=== PATIENT | female | born 1950 | race Two or more races ===

== ENCOUNTER 2018-08-15 01:46 | Inpatient (IN) | payer MEDICARE, OTHER ==
[~2018-08-15] VITALS: Ht 149.9 cm; Wt 29.9 kg
--- NOTE | 2018-08-15 02:30 | NUR ---
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 PT [id number]. PT HYPERVENTILATING. PT PUT ON THE MANAGER GYN AND PULSE OX. PT SATURATING 99% ON ROOM AIR. PENDING EVAL FROM JANE WHITE.
[2018-08-15] MEDS ORDERED: IV NS 0.9% 500 ML IV ONE (02:36)
--- NOTE | 2018-08-15 02:53 | NUR ---
XRAY AT BEDSIDE.
[2018-08-15] MEDS ORDERED: FAMOTIDINE/PF INJ 20 MG/2 ML VIAL IV ONE ×2 (03:00→03:15)
[2018-08-15] MEDS ORDERED: ALBUTEROL FS 2.5 MG/3 ML VIAL.NEB NEB ONE (03:00)
[2018-08-15] MEDS ORDERED: IPRATROPIUM NEB FS 0.5 MG/2.5 ML AMPUL.NEB NEB ONE (03:00)
[2018-08-15] MEDS ORDERED: ONDANSETRON HCL/PF - ER 4 MG/2 ML VIAL IV ONE (03:00)
[2018-08-15] MEDS ORDERED: ONDANSETRON HCL/PF 4 MG/2 ML VIAL ONE (03:13)
[2018-08-15] MEDS ORDERED: MORPHINE SULFATE INJ 2 MG/ML DISP.SYRIN ONE (03:14)
--- NOTE | 2018-08-15 03:20 | NUR ---
PT STATING THAT SHE DOES NOT WANT TO HAVE THE CT SCAN AT THIS MOMENT. ER MD AWARE.
[2018-08-15 03:22] LABS: BASOPHILS # (AUTO) 0.1 /CMM (0.0-0.2); BASOPHILS % (AUTO) 0.9 % (0.0-2.0); EOSINOPHILS % (AUTO) 0.3 % (0.0-6.0); HEMATOCRIT 35 % (33-45); LYMPHOCYTES # (AUTO) 1.1 /CMM (0.8-4.8); LYMPHOCYTES % (AUTO) 9.4 % (20.0-44.0); MEAN CORPUSCULAR HGB CONC 32 g/dl (31.0-36.0); MEAN CORPUSCULAR VOLUME 78 fL (82-100); MONOCYTES # (AUTO) 0.8 /CMM (0.1-1.30); MONOCYTES % (AUTO) 6.5 % (2.0-12.0); NEUTROPHILS # (AUTO) 9.7 /CMM (1.8-8.9); NEUTROPHILS % (AUTO) 82.9 % (43.0-81.0); PLATELET COUNT (AUTO) 359 /CMM (150-450); RED BLOOD CELL COUNT(AUTO) 4.49 MIL/uL (4.0-5.2); WHITE BLOOD COUNT (AUTO) 11.7 K/uL (4.3-11.0)
[2018-08-15] MEDS ORDERED: MORPHINE SULFATE INJ 2 MG/ML DISP.SYRIN IV ONE (03:30)
[2018-08-15 03:33] LABS: CALCIUM, SERUM 9.1 mg/dL (8.5-10.1); CARBON DIOXIDE 18 mmol/L (21-32); CHLORIDE 109 mmol/L (98-107); CREATININE 1.2 mg/dL (0.6-1.3); GLUCOSE 129 mg/dL (74-106); POTASSIUM 3.2 mmol/L (3.5-5.1); SODIUM SERUM 144 mmol/L (136-145); UREA NITROGEN, BLOOD 29 mg/dL (7-18)
--- NOTE | 2018-08-15 03:34 | NUR ---
pt refused ekg made aware
[2018-08-15 03:45] LABS: ALANINE AMINOTRANSFERASE 19 U/L (12-78); ALKALINE PHOSPHATASE 56 U/L (46-116); ASPARTATE AMINOTRANSFERASE 14 U/L (15-37); B-TYPE NATRIURETIC PEPTIDE 223 PG/ML (0-125); BILIRUBIN,DIRECT 0.1 mg/dL (0.0-0.2); BILIRUBIN,TOTAL 0.4 mg/dL (0.2-1.0)
--- NOTE | 2018-08-15 05:09 | NUR ---
PT TAKEN TO CT, NOT TOLERATING LAYING FLAT. CT NOT TAKEN. ER NOTIFIED.
[2018-08-15] MEDS ORDERED: HYDROMORPHONE 1 MG/1 ML DISP.SYRIN ONE (05:11)
[2018-08-15] MEDS ORDERED: HYDROMORPHONE 1 MG/1 ML DISP.SYRIN IV ONE (05:30)
--- NOTE | 2018-08-15 06:20 | NUR ---
DR. DEL CID HAS BEEN PAGED
--- NOTE | 2018-08-15 06:53 | NUR ---
REPORT GIVEN TO HILLARY CROWDER FOR TERRELL.
[2018-08-15 07:21] LABS: APPEARANCE,URINE CLEAR (CLEAR); BILIRUBIN,URINE NEGATIVE (NEGATIVE); BLOOD, URINE TRACE Ery/uL (NEGATIVE); COLOR,URINE YELLOW (YELLOW); KETONES,URINE TRACE (NEGATIVE); LEUKOCYTE ESTERASE ,URINE NEGATIVE (NEGATIVE); NITRITE, URINE NEGATIVE (NEGATIVE); PH,URINE 5.5 (5.0-8.0); PROTEIN,URINE NEGATIVE (NEGATIVE); UGLUCOSE NEGATIVE (NEGATIVE); UROBILINOGEN,URINE 0.2 EU/dL (0.2)
[2018-08-15 07:27] LABS: BACTERIA,URINE Few /HPF (None Seen); RBC,URINE 0-2 /HPF (0-2); WBC,URINE 0-2 /HPF (0-3)
[2018-08-15 07:28] LABS: MUCUS,URINE Rare /LPF (None Seen); SQUAMOUS EPITHELIAL CELL,UR Rare /HPF (None Seen)
--- NOTE | 2018-08-15 07:56 | NUR ---
REPORT GIVEN TO RAHUL CORWDER FOR TERRELL.
[2018-08-15 09:05] VITALS: BP 148/91
--- NOTE | 2018-08-15 09:10 | NUR ---
tele day spa manager: admission admitted this 67 year old female pt from e.. with dx: intractable n/v, abdominal pain. pt very anxious and hyperventilating. place pt on tele [id number]. 1:1 intervention provided, encouraged to verbalized feelings. pt alert and oriented, however with poor concentration due to anxiety. oriented to room and surroundings. left message to kehinde (nick) thru exchange. pt made aware. kept pt npo. instructed to call for assistance. will continue to monitor.
--- NOTE | 2018-08-15 09:19 | NUR ---
wheeled patient via gurney accompanied by rn and emt in no apparenet distress noted.
--- NOTE | 2018-08-15 10:45 | NUR ---
tele mobile phlebotomist: md visit seen and examined by kehinde (acnp) with new orders. pt for gi consult: Reason for Consultation: <intractable n/v with hx of esophagitis and duodenal ulcer on EGD 05/30/2018 per md. pt made aware. pt may have ice chips only, pt still anxious, but refusing ativan at this time when offered. kept pt npo. instructed to call for assistance. will continue to monitor.
[2018-08-15] MEDS ORDERED: INSULIN REGULAR, HUMAN 100 UNIT/ML 3 ML VIAL SQ PRN (11:00)
[2018-08-15] MEDS ORDERED: MORPHINE SULFATE INJ 2 MG/ML DISP.SYRIN IV PRN (11:00)
[2018-08-15] MEDS ORDERED: MAG HYDROX/AL HYDROX/SIMETH 30 ML UDC PO PRN (11:00)
[2018-08-15] MEDS ORDERED: ACETAMINOPHEN 325 MG TABLET PO PRN ×2 (11:00→15:00)
[2018-08-15] MEDS ORDERED: IV D5/ 0.9% NACL 1,000 ML IV PRN (11:00)
[2018-08-15] MEDS ORDERED: LORAZEPAM INJ 2 MG/ML VIAL IV PRN (11:00)
[2018-08-15] MEDS ORDERED: DEXTROSE 50%-WATER 50 ML DISP.SYRIN IV PRN (11:00)
[2018-08-15] MEDS ORDERED: MAGNESIUM HYDROXIDE 30 ML UDC PO PRN (11:00)
[2018-08-15] MEDS ORDERED: Z GUARD REMEDY 2 OZ OINT TP PRN (11:00)
[2018-08-15] MEDS: POTASSIUM CL. PREMIX PERIPHER. 50 ML IV SCH ×5 (11:21→20:33)
[2018-08-15] MEDS ORDERED: AMYL1CAP58 PO (11:32)
[2018-08-15] MEDS ORDERED: DEXA4TAB PO (11:32)
[2018-08-15] MEDS ORDERED: PANT40TA4 PO (11:32)
[2018-08-15] MEDS ORDERED: GABA-534 PO (11:32)
[2018-08-15] MEDS ORDERED: LOPE2TAB25 PO (11:32)
[2018-08-15] MEDS: BLOOD SUGAR DIAGNOSTIC 1 EACH STRIP IN SCH ×3 (11:40→23:47)
[2018-08-15 12:00] VITALS: BP 162/84
--- NOTE | 2018-08-15 12:00 | NUR ---
tele head of stock: notes pt remains npo, ice chips provided. pt wants to eat. pt remain easily gets anxious. encouraged to verbalized feelings. will continue to monitor.
[2018-08-15] MEDS: PANTOPRAZOLE 40 MG VIAL IV SCH ×2 (12:18→18:12)
[2018-08-15] MEDS: ONDANSETRON HCL/PF 4 MG/2 ML VIAL IVP PRN (13:10)
[2018-08-15] MEDS: Magnesium 1GM/D5W 100ML PREMIX 100 ML IV SCH ×4 (14:22→18:12)
--- NOTE | 2018-08-15 14:50 | NUR ---
tele financial coordinator: gi consult seen and examined by dr. gu with new orders and also receive verbal order to start her on low fat diet, lactose free. order read back and carried out and acknowledged.
[2018-08-15] MEDS ORDERED: LOPERAMIDE HCL (2 MG CAP) 2 MG CAPSULE PO PRN (15:00)
[2018-08-15] MEDS ORDERED: CHOLESTYRAMINE/ASPARTAME 4 G/PKT PACKET PO ONE (15:30)
[2018-08-15] MEDS: LACTOBACILLUS RHAMNOSUS GG 1 EACH CAP.SPRINK PO SCH ×2 (15:35→17:04)
--- NOTE | 2018-08-15 15:38 | NUR ---
m/s child and adolescent therapist: notes september d'c ivf of d5ns and accu check with sliding scale after potassium is replaced per kehinde (acnp) per telephone order. orders read back and carried out. pt still with anxiousness, but refused ativan when offered. will continue to monitor.
[2018-08-15 16:00] VITALS: BP 152/87
--- NOTE | 2018-08-15 16:45 | NUR ---
m/s landscaping and groundskeeping laborer: notes taken down for ct via w/c at this time accompanied by tech.
--- NOTE | 2018-08-15 16:55 | NUR ---
m/s ear nose and throat specialist: notes pt back from ct and safely transferred back to bed. kept comfortable. instructed to call for assistance. will monitor.
[2018-08-15] MEDS ORDERED: PANTOPRAZOLE 40 MG VIAL IV SCH (17:00)
[2018-08-15] MEDS: GABAPENTIN 300 MG CAPSULE PO SCH (17:04)
[2018-08-15] MEDS: MESALAMINE 400 MG CAP PO SCH (17:05)
--- NOTE | 2018-08-15 17:05 | NUR ---
m/s commutator presser: notes dinner served. hob elevated. call light within reach. will monitor.
[2018-08-15] MEDS: LIPASE/PROTEASE/AMYLASE 1 EACH CAPSULE.DR PO SCH (17:06)
--- NOTE | 2018-08-15 17:34 | NUR ---
tele cardiovascular physician assistant: notes ct abdomen resulted. dr. gu (gi) notified and made aware with no new order, continue current treatment per md. left message to kehinde (acnp) re: ct abdomen result. will continue to monitor.
--- NOTE | 2018-08-15 18:00 | NUR ---
tele casino accountant: notes kehinde (acnp) here and showed ct abdomen result with no new order.
--- NOTE | 2018-08-15 19:00 | NUR ---
tele tile sorter: notes bedside report given damian (rn) for continuity of care. pt resting quietly and watching tv. voiced no discomfort. call light within reach.
--- NOTE | 2018-08-15 19:05 | NUR ---
MANUFACTURING JOB TITLES OPENING NOTES Received patient A/O x4, awake on semi-Callejas's position on bed with patent peripheral IV line LFA G#20 with D5NS infusing well @ 75ml/hr, with on going KCL 10mEq infusing well @ 100ml/hr as ordered. Patient denies discomfort at this time but refused to be touched/assessed, patient claimed having pain when touched. Kept clean, dry and comfortable, call light at bedside. Will continue to monitor accordingly. Addendum: 08/15/18 at 0766 by EMMANUEL JOSE RN On tele monitor with SR noted.
[2018-08-15] MEDS ORDERED: POTASSIUM CHLORIDE 10 MEQ/50 ML PREMIXED IVPB FOR PERIPHERAL LINE IV ONE ×2 (19:30)
[2018-08-15 20:00] VITALS: BP 114/76
[2018-08-16] VITALS: BP 108/71
[2018-08-16] MEDS: MESALAMINE 400 MG CAP PO SCH ×3 (01:05→17:13)
[2018-08-16 04:00] VITALS: BP_SYST 108; BP_SYST 112; BP_DIAS 71; BP_DIAS 75
--- NOTE | 2018-08-16 06:23 | NUR ---
PROCESS PLANT OPERATOR CLOSING NOTES Patient on bed intermittently asleep. With peripheral IV line LFA G#22, SL as ordered. All nursing needs attended. Kept on bed clean, dry and comfortable. Kept bed low and locked, siderails x2 up with call light within easy reach. No BM noted within the shift, patient still for stool collection as ordered. No new unsualities noted. Endorsed to the next shift. Addendum: 08/16/18 at 0636 by EMMANUEL JOSE RN On tele monitor with sinus rhythm noted.
[2018-08-16 06:42] LABS: BASOPHILS % (AUTO) 0.5 % (0.0-2.0); EOSINOPHILS % (AUTO) 0.3 % (0.0-6.0); HEMATOCRIT 29 % (33-45); HEMOGLOBIN 9.6 g/dL (11.5-14.8); LYMPHOCYTES # (AUTO) 0.6 /CMM (0.8-4.8); LYMPHOCYTES % (AUTO) 6.5 % (20.0-44.0); MEAN CORPUSCULAR HGB CONC 33 g/dl (31.0-36.0); MEAN CORPUSCULAR VOLUME 76 fL (82-100); MONOCYTES # (AUTO) 0.8 /CMM (0.1-1.30); MONOCYTES % (AUTO) 8.6 % (2.0-12.0); NEUTROPHILS # (AUTO) 7.5 /CMM (1.8-8.9); NEUTROPHILS % (AUTO) 84.1 % (43.0-81.0); PLATELET COUNT (AUTO) 228 /CMM (150-450); RED BLOOD CELL COUNT(AUTO) 3.85 MIL/uL (4.0-5.2); WHITE BLOOD COUNT (AUTO) 8.9 K/uL (4.3-11.0)
[2018-08-16 06:54] LABS: CALCIUM, SERUM 7.9 mg/dL (8.5-10.1); CREATININE 0.8 mg/dL (0.6-1.3); MAGNESIUM 2.6 mg/dL (1.8-2.4); PHOSPHORUS 3.9 mg/dL (2.5-4.9); POTASSIUM 3.8 mmol/L (3.5-5.1)
[2018-08-16 06:57] LABS: THYROID STIMULATING HORMONE 1.048 uIU/mL (0.358-3.74)
[2018-08-16 08:00] VITALS: BP 123/92
--- NOTE | 2018-08-16 08:00 | NUR ---
RN OPENING NOTES Received Patient awake in bed. A/O x 4. VS stable. Patient complains of headache 5/10 with facial grimacing. Administered Tylenol 325mg PO PRN per Patients request at 0812. Telemonitor in place, SR with HR-99. Breathing even and unlabored on RA. IV access on LEFT FOREARM, clean, dry and intact. IV flushes well. All scheduled medications administered. Safety precautions in place. Call light within reach. Will continue to monitor.
[2018-08-16] MEDS: LIPASE/PROTEASE/AMYLASE 1 EACH CAPSULE.DR PO SCH ×3 (08:10→17:18)
[2018-08-16] MEDS: PANTOPRAZOLE 40 MG VIAL IV SCH ×2 (08:48→17:13)
[2018-08-16] MEDS: LACTOBACILLUS RHAMNOSUS GG 1 EACH CAP.SPRINK PO SCH ×2 (08:48→17:13)
[2018-08-16] MEDS: GABAPENTIN 300 MG CAPSULE PO SCH ×3 (08:49→17:13)
--- NOTE | 2018-08-16 09:00 | NUR ---
RN NOTES Per Set Up Inspector, D/C Patient from Tele, transfer to Med/Surg. Will continue to monitor.
[2018-08-16] MEDS: ASPIRIN/ACETAMINOPHEN/CAFFEINE 1 EACH TABLET PO PRN (13:10)
--- NOTE | 2018-08-16 13:10 | NUR ---
RN NOTES Administered Excedrin 2 tab PO PRN per Patients request. Patient stated migraine pain level of 8/10. Facial grimacing noted. Guarding noted. No acute distress. Will continue to monitor.
[2018-08-16] MEDS: ONDANSETRON HCL/PF 4 MG/2 ML VIAL IVP PRN (13:18)
--- NOTE | 2018-08-16 13:18 | NUR ---
RN NOTES Administered Zofran 8mg IV PUSH PRN per Patients request. Patient complains of nausea, no emesis noted. IV access, clean, dry and intact and flushes well. Will continue to monitor.
[2018-08-16] MEDS ORDERED: METOCLOPRAMIDE HCL 10 MG TABLET PO ONE ×2 (15:00→15:30)
--- NOTE | 2018-08-16 15:58 | NUR ---
RN NOTES Patient states nausea unrelieved at 1348. Notified Hai VALLE. At 1440, new order of Reglan 10mg PO x 1 time dose now. Will continue to monitor.
[2018-08-16 16:00] VITALS: BP 149/94
--- NOTE | 2018-08-16 18:53 | NUR ---
RN CLOSING NOTES Patient awake and comfortable in bed. A/O x 4. VS stable. Denies nausea and vomiting at this time. Patient stated tolerable pain level of 2/10 at bilateral fingers and bilateral knees. Breathing even and unlabored on room air. IV access on LEFT FOREARM, clean, dry and intact. IV flushes well. All scheduled medications administered. All needs rendered. Safety precautions in place. Call light within reach. Will endorse care of plan to oncoming nurse.
--- NOTE | 2018-08-16 19:15 | NUR ---
MS RN OPENING NOTES Received patient A/O x4, awake on bed on semi-Callejas's position, with snacks at bedside. Per patient, headache is very manageable at this time compared to earlier today. Encouraged patient to increase oral fluid intake as tolerated, water provided at bedside. Kept bed low and locked, with siderails up. Call light at bedside within easy reach. Will continue to monitor accordingly.
[2018-08-16 20:00] VITALS: BP_SYST 123; BP_DIAS 83; BP_DIAS 85
[2018-08-17] MEDS: MESALAMINE 400 MG CAP PO SCH ×3 (00:32→17:00)
--- NOTE | 2018-08-17 03:40 | NUR ---
MS RN NOTES Stool sample collected for stool culture and c-diff analysis. Notified labs for slate picker, spoke with
[2018-08-17] MEDS: ASPIRIN/ACETAMINOPHEN/CAFFEINE 1 EACH TABLET PO PRN (04:59)
--- NOTE | 2018-08-17 06:36 | NUR ---
MS RN CLOSING NOTES Patient noted intermittently asleep throughout the shift. BM X2 noted, loose. Medicated for pain, noted Exsadren effective. All nursing needs attended. Kept clean, dry and comfortable. Kept bed low and locked, side rails up x2, call light within easy reach. Endorsed to the next shift.
[2018-08-17 06:48] LABS: BASOPHILS # (AUTO) 0.1 /CMM (0.0-0.2); BASOPHILS % (AUTO) 0.6 % (0.0-2.0); EOSINOPHILS % (AUTO) 0.5 % (0.0-6.0); HEMATOCRIT 31 % (33-45); HEMOGLOBIN 10.3 g/dL (11.5-14.8); LYMPHOCYTES # (AUTO) 0.9 /CMM (0.8-4.8); LYMPHOCYTES % (AUTO) 9.9 % (20.0-44.0); MEAN CORPUSCULAR HGB CONC 33 g/dl (31.0-36.0); MEAN CORPUSCULAR VOLUME 77 fL (82-100); MONOCYTES # (AUTO) 0.8 /CMM (0.1-1.30); MONOCYTES % (AUTO) 8.3 % (2.0-12.0); NEUTROPHILS # (AUTO) 7.6 /CMM (1.8-8.9); NEUTROPHILS % (AUTO) 80.7 % (43.0-81.0); PLATELET COUNT (AUTO) 248 /CMM (150-450); RED BLOOD CELL COUNT(AUTO) 4.07 MIL/uL (4.0-5.2); WHITE BLOOD COUNT (AUTO) 9.4 K/uL (4.3-11.0)
[2018-08-17 07:00] LABS: CALCIUM, SERUM 8.5 mg/dL (8.5-10.1); MAGNESIUM 1.9 mg/dL (1.8-2.4); PHOSPHORUS 4.7 mg/dL (2.5-4.9)
--- NOTE | 2018-08-17 07:15 | NUR ---
MS RN Opening Notes Patient asleep, resting in bed. Semi-Fowlers position. Alert and oriented x4, able to make needs known. No complaints of shortness of breath, chest pain or pain at this time. Respirations even and unlabored on room air, no acute distress noted. Peripheral IV to the left forearm 22 gauge, intact, patent and saline locked. Updated patient on current plan of care and safety measures. Patient verbalized understanding. Safety and fall precautions in place: bed in lowest and locked position, side rails up x2, bed alarm on, call light and personal possessions within reach. Will continue to monitor and intervene as needed.
[2018-08-17 08:00] VITALS: BP 130/56
[2018-08-17] MEDS: GABAPENTIN 300 MG CAPSULE PO SCH ×3 (08:00→17:00)
[2018-08-17] MEDS: LIPASE/PROTEASE/AMYLASE 1 EACH CAPSULE.DR PO SCH ×3 (08:00→18:00)
[2018-08-17] MEDS: LACTOBACILLUS RHAMNOSUS GG 1 EACH CAP.SPRINK PO SCH ×2 (08:00→17:00)
[2018-08-17] MEDS: PANTOPRAZOLE 40 MG VIAL IV SCH ×2 (09:31→18:21)
[2018-08-17] MEDS: POTASSIUM CHLORIDE 20 MEQ TAB.PRT.SR PO SCH ×3 (13:14→13:33)
[2018-08-17] MEDS: POTASSIUM CHLORIDE 20 MEQ POWDER PACKET PO SCH ×2 (14:44→15:00)
[2018-08-17 16:00] VITALS: BP 140/70
[2018-08-17] MEDS: ONDANSETRON HCL/PF 4 MG/2 ML VIAL IVP PRN (16:17)
[2018-08-17] MEDS: PROSOURCE / PROSTAT (PYXIS) 30 ML UDC GT SCH (16:57)
--- NOTE | 2018-08-17 17:30 | NUR ---
MS social work associate Note Patient currently with nausea and 1x episode of emesis. Zofran given as ordered. Currently refusing all oral medications and dinner. 2x diarrhea this shift. Will page hospitalist for fluid orders. Currently resting in bed. Will continue to monitor.
[2018-08-17] MEDS ORDERED: METOCLOPRAMIDE HCL 10 MG/2 ML VIAL IV PRN (18:00)
--- NOTE | 2018-08-17 19:40 | NUR ---
MS SIA INITIAL NOTES RECEIVED REPORT FROM AM NURSE AND SEEN PT IN BED ON SEMI FOWLERS POSITION AWAKE AND ALERT RESTING AT THIS TIME. DENIES ANY PAIN OR ANY DISCOMFORT. DENIES ANY PAIN AND PER AM NURSE SHE JUST GAVE ZOFRAN FOR HER N/V .ENCOURAGE PT TO USED THE CALL LIGHT SYSTEM IF SHE NEEDS SOME HELP OR ASSISTANCE. PLACE CALL LIGHT AT REACH. WILL CONTINUE MONITORING.
[2018-08-17 20:00] VITALS: BP 148/93
[2018-08-17] MEDS: Potassium Chloride 20 MEQ in IV D5/ 0.9% NACL 1,000 ML IV PRN (20:39)
--- NOTE | 2018-08-18 | NUR ---
CAR BODY DESIGNER NOTES PT SLEEPING COMFORTABLY IN BED WITH IVF STILL INFUSING , BREATHING EVEN AND UNLABORED, NOT IN ANY ACUTE DISTRESS NOTED. KEPT HER WARM AND COMFORTABLE AT ALL TIMES. WILL CONTINUE MONITORING.
[2018-08-18] MEDS: MESALAMINE 400 MG CAP PO SCH ×3 (02:06→17:00)
[2018-08-18 06:42] LABS: BASOPHILS % (AUTO) 0.3 % (0.0-2.0); HEMATOCRIT 31 % (33-45); LYMPHOCYTES # (AUTO) 0.6 /CMM (0.8-4.8); LYMPHOCYTES % (AUTO) 7.3 % (20.0-44.0); MEAN CORPUSCULAR HGB CONC 33 g/dl (31.0-36.0); MEAN CORPUSCULAR VOLUME 77 fL (82-100); MONOCYTES # (AUTO) 0.8 /CMM (0.1-1.30); MONOCYTES % (AUTO) 9.1 % (2.0-12.0); NEUTROPHILS # (AUTO) 7.1 /CMM (1.8-8.9); NEUTROPHILS % (AUTO) 83.3 % (43.0-81.0); PLATELET COUNT (AUTO) 243 /CMM (150-450); RED BLOOD CELL COUNT(AUTO) 3.97 MIL/uL (4.0-5.2); WHITE BLOOD COUNT (AUTO) 8.5 K/uL (4.3-11.0)
--- NOTE | 2018-08-18 06:43 | NUR ---
MS HARNESS TIER CLOSING NOTES PT REMAINS SLEEPING COMFORTABLY IN BED WITHOUT ANY DISTRESS NOTED . RESPIRATION EVEN AND UNLABORED . STABLE AND SLEPT WELL CHIQUITA THE NIGHT. IVF D5NS WITH 20 MEQ KCL AT 75ML/HR STILL INFUSING , NO REDNESS NOTED. KEPT HER WARM AND COMFORTABLE AT ALL TIMES,. BED IN LOW AND LOCK IN POSITION WITH SIDE RAILS X2 UP. PLACE CALL LIGHT AT REACH. WILL ENDORSE TO AM NURSE FOR CONTINUITY OF CARE.
[2018-08-18 07:23] LABS: CALCIUM, SERUM 8.1 mg/dL (8.5-10.1); MAGNESIUM 1.5 mg/dL (1.8-2.4); PHOSPHORUS 4.1 mg/dL (2.5-4.9); POTASSIUM 3.5 mmol/L (3.5-5.1)
--- NOTE | 2018-08-18 07:54 | NUR ---
MS RN NOTES PATIENT RECEIVED RESTING INSIDE ROOM. AWAKE, ALERT AND ORIENTED, VERBALLY RESPONSIVE AND RESPONDS TO VERBAL AND TACTILE STIMULI. BREATHING EVEN AND UNLABORED. DENIES ANY PAIN OR DISCOMFORT AT THIS TIME. PATIENT CALM AND RELAXED. IVF D5NS WITH 20MEQ KCL INFUSING AND PATIENT TOLERATING WELL. WILL CONTINUE TO MONITOR. BED LOCKED AND IN LOW POSITION. BILATERAL UPPER SIDE RAILS UP AND LOCKED. CALL LIGHT WITHIN EASY REACH
[2018-08-18] MEDS: LIPASE/PROTEASE/AMYLASE 1 EACH CAPSULE.DR PO SCH ×2 (08:00→12:23)
[2018-08-18] MEDS: PROSOURCE / PROSTAT (PYXIS) 30 ML UDC GT SCH ×2 (09:00→17:00)
[2018-08-18] MEDS: GABAPENTIN 300 MG CAPSULE PO SCH ×3 (09:00→17:00)
[2018-08-18] MEDS: LACTOBACILLUS RHAMNOSUS GG 1 EACH CAP.SPRINK PO SCH ×2 (09:00→17:00)
[2018-08-18] MEDS: PANTOPRAZOLE 40 MG VIAL IV SCH ×2 (09:26→17:00)
--- NOTE | 2018-08-18 09:44 | NUR ---
MS RN NOTES PATIENT REFUSED TO TAKE AM PO MEDICATIONS. RISKS AND BENEFITS EXPLAINED BUT TO NO AVAIL. OFFERED X 3, PATIENT STRONGLY REFUSED MEDICATION. AGREED TO HAVE IV PROTONIX ORDERED BUT NOTHING MORE. MD AWARE. WILL CONTINUE TO MONITOR
[2018-08-18] MEDS: Magnesium 1GM/D5W 100ML PREMIX 100 ML IV SCH ×2 (11:01→12:18)
[2018-08-18] MEDS: ONDANSETRON HCL/PF 4 MG/2 ML VIAL IVP PRN ×2 (11:27→16:52)
[2018-08-18] MEDS: Potassium Chloride 20 MEQ in IV D5/ 0.9% NACL 1,000 ML IV PRN (11:29)
--- NOTE | 2018-08-18 12:24 | NUR ---
MS RN NOTES CAME TO OFFER PATIENT MEDICATIONS BUT PATIENT REFUSED. RISKS AND BENEFITS EXPLAINED BUT TO NO AVAIL. PATIENT STRONGLY REFUSED AND VERBALIZED, "JUST LEAVE ME ALONE!". RESPECTED PATIENT RIGHTS. HOSPITALIST AWARE. WILL CONTINUE TO MONITOR
--- NOTE | 2018-08-18 16:16 | NUR ---
MS RN NOTES PLACED CALL TO [facility] [phone]. AND SPOKE WITH MICHEAL, ADMIN. REPORTED THAT PATIENT HAS BEEN REFUSING TO TAKE MEDICATIONS AND TO HAVE VITAL SIGNS OBTAINED. VERBALIZED UNDERSTANDING AND SAID THAT THEY WILL STILL ACCEPT THE PATIENT BACK. WILL CONTINUE TO MONITOR
--- NOTE | 2018-08-18 17:18 | NUR ---
M/S RN NOTES PT DISCHARGED TODAY. DISCHARGE INSTRUCTIONS AND EDUCATION GIVEN. PATIENT VERBALIZED UNDERSTANDING. PATIENT REFUSED TO HAVE SKIN ASSESSMENT DONE. RISK AND BENEFITS EXPLAINED. NO SKIN BREAKDOWN NOTED ON PATIENT'S EXTREMETIES. PT REFUSED TO HAVE HER BAG CHECKED BUT DENIED TO HAVE ANY INVENTORY MISSING, SIGNED INVENTORY FORM. PT REFUSED TO HAVE VITAL SIGNS TAKEN PRIOR TO DISCHARGE, RISK AND BENEFITS EXPLAINED BUT PATIENT STRONGLY REFUSED. PATIENT LEFT THE UNIT AT 1700 VIA GURNEY WITH 2 MATERIAL CUTTER. NO ACUTE DISTRESS, DENIES ANY PAIN. MD AWARE OF DISCHARGE.
== END 2018-08-18 17:00 | disposition home or self-care (01) | DRG 391 ==
LOC: ER 01:48 → TELE 06:38 → MED 08-16 10:09
PROVIDERS: ADMIT Hospitalist; ATTEND Hospitalist
DX: A08.4 Viral intestinal infection, unspecified (principal); E43 Unspecified severe protein-calorie malnutrition; R64 Cachexia; K56.7 Ileus, unspecified; E87.2 Acidosis; Z87.11 Personal history of peptic ulcer disease; Z92.21 Personal history of antineoplastic chemotherapy; Z91.19 Patient's noncompliance with other medical treatment and regimen; Z87.891 Personal history of nicotine dependence; E86.0 Dehydration; E87.6 Hypokalemia; F41.9 Anxiety disorder, unspecified; K27.9 Peptic ulcer, site unspecified, unspecified as acute or chronic, without hemorrhage or perforation; Z88.0 Allergy status to penicillin; E83.42 Hypomagnesemia; D64.9 Anemia, unspecified; M85.88 Other specified disorders of bone density and structure, other site; J45.909 Unspecified asthma, uncomplicated; K21.0 Gastro-esophageal reflux disease with esophagitis; Z85.79 Personal history of other malignant neoplasms of lymphoid, hematopoietic and related tissues
CPT/HCPCS: 36415; 71045-TC; 80048-TC; 80061-TC; 80074; 80076-TC; 81000-TC; 82962-TC; 83605-TC; 83690-TC; 83735-TC; 83880; 84100-TC; 84443-TC; 84484-TC; 85025-TC; 85378-TC; 85610-TC; 87040-TC; 87045-TC; 87081-TC; 87086-TC; C9113; G0378; J1170; J1815; J2270; J2405; J2765; J3475; J3480; J3490; J7030; J7042; J8597